=== PATIENT | female | born 1985 | race Caucasian/White ===

== ENCOUNTER → 2017-08-20 | Outpatient (CLI) | payer OTHER ==
[~2017-08-20] MED LIST: BACTRIM 400-801 TAB PO; BACTRIM DS TABL1 TAB PO; IMODIUM A-D2 MG; KETO10TA2 PO; LOPERAMIDE2 MG PO; Mylicon 125MG PO; PROTONIX40 MG PO; Prednisone PO; ULTRACET PO
== END | disposition home or self-care (01) ==
LOC: NUCLEAR 08:30
DX: M07.60 Enteropathic arthropathies, unspecified site (principal)
CPT/HCPCS: 78306; A9503

== ENCOUNTER → 2017-08-29 | Emergency (ER) | payer OTHER ==
[~2017-08-29] VITALS: Ht 149.9 cm; Wt 37.2 kg
== END | disposition home or self-care (01) ==
LOC: ER 12:47
DX: K52.9 Noninfective gastroenteritis and colitis, unspecified (principal)

== ENCOUNTER → 2018-11-18 | Day surgery (SDC) | payer OTHER | END | disposition home or self-care (01) | LOC: AMB-ENDOS 06:45 | DX: K51.011 Ulcerative (chronic) pancolitis with rectal bleeding (principal) ==

== ENCOUNTER 2019-06-05 05:20 | Emergency (ER) | payer OTHER ==
[~2019-06-05] VITALS: Ht 149.9 cm; Wt 42.6 kg
== END 2019-06-05 09:22 | disposition home or self-care (01) ==
LOC: ER 05:20
DX: R50.9 Fever, unspecified (principal); B96.0 Mycoplasma pneumoniae [M. pneumoniae] as the cause of diseases classified elsewhere

== ENCOUNTER 2020-01-12 06:20 | Day surgery (SDC) | payer OTHER | END 2020-01-12 11:25 | disposition home or self-care (01) | LOC: AMB-ENDOS 06:20 | DX: D13.2 Benign neoplasm of duodenum (principal) ==

== ENCOUNTER 2025-01-18 08:54 | Inpatient (IN) | payer OTHER ==
[~2025-01-18] VITALS: Ht 149.9 cm; Wt 41.7 kg
[2025-01-18] MEDS ORDERED: KETOROLAC TROMETHAMINE 30 MG VIAL IV ONE (09:30)
[2025-01-18] MEDS ORDERED: 0.9 % SODIUM CHLORIDE 1,000 ML IV ONE (09:30)
[2025-01-18] MEDS ORDERED: PANTOPRAZOLE SODIUM 40 MG/VIAL VIAL IV ONE (09:30)
[2025-01-18] MEDS ORDERED: PIPERACILLIN/TAZOBACTAM SODIUM 3.375 GM VIAL IV ONE ×2 (09:30→09:50)
[2025-01-18] MEDS ORDERED: KETOROLAC TROMETHAMINE 30 MG VIAL ONE (09:46)
[2025-01-18] MEDS ORDERED: LIDOCAINE HCL VISCOUS 20MG/ML BLIST 15ML MM ONE (09:51)
[2025-01-18 10:24] LABS: BASO % 0.4 % (0.1-1.2); EOS % 5.5 % (0.7-7.0); HEMATOCRIT 38.8 % (34.1-44.9); HEMOGLOBIN 12.8 g/dL (11.2-15.7); LYMPH # 2.62 (1.18-3.74); LYMPH % 28.8 % (19.3-53.1); MEAN CORPUSCULAR HEMOGLOBIN 30.2 pg (25.6-32.2); MONO # 0.81 (0.24-0.82); MONO % 8.9 % (4.7-12.5); NEUT # 5.11 (1.56-6.13); NEUT % 56.2 % (34.0-71.1); PLATELET COUNT 219 K/uL (163-369); RED BLOOD COUNT 4.24 M/uL (3.93-5.22); RED CELL DISTRIBUTION WIDTH 12.3 % (11.6-14.4)
[2025-01-18 10:27] LABS: URINE APPEARANCE Cloudy; URINE BILIRRUBIN Negative (NEGATIVE); URINE BLOOD Negative; URINE COLOR Yellow; URINE GLUCOSE Negative (NEGATIVE); URINE KETONE Negative (NEGATIVE); URINE LEUKOCYTE Large; URINE NITRATE Negative; URINE PROTEIN Negative (NEGATIVE); URINE UROBILINOGEN 0.2 E.U./dl
[2025-01-18 10:30] LABS: URINE BACTERIA 2648.6 uL (0.0-1933); URINE EPITHELIAL CELLS 102.4 uL (0.0-38.8); URINE RBC 2.9 uL (0.0-20.8); URINE WBC 254.8 uL (0.0-23.2)
[2025-01-18 10:37] LABS: URINE CAST 0.88 uL (0.0-1.40)
[2025-01-18 10:55] LABS: INR 1.02; PARTIAL THROMBOPLASTIN TIME 28.6 SECONDS (22.0-34.0); PROTHROMBIN TIME 11.1 SECONDS (9.0-11.5)
[2025-01-18 10:59] LABS: ALBUMIN 3.7 gm/dL (3.4-5.0); BILIRUBIN TOTAL 1.75 mg/dL (0.3-1.2); CALCIUM 8.9 mg/dL (8.5-10.1); CREATININE SERUM 0.71 mg/dL (0.55-1.02); GFR 92.13; GLOBULINA 3.9 G/DL (2.4-3.5); POTASSIUM 3.56 mEq/L (3.5-5.1); TOTAL PROTEIN 7.6 gm/dL (6.4-8.2)
[2025-01-18] MEDS ORDERED: RINGERS SOLUTION,LACTATED 1,000 ML IV SCH (15:15)
[2025-01-18] MEDS ORDERED: MORPHINE SULFATE 4 MG/ML VIAL IV PRN (15:15)
[2025-01-18] MEDS ORDERED: MORPHINE SULFATE 4 MG/ML CARTRIDGE IV PRN (15:30)
[2025-01-18] MEDS ORDERED: METOCLOPRAMIDE HCL 5 MG/ML VIAL IV SCH (17:00)
[2025-01-18] MEDS ORDERED: METOCLOPRAMIDE HCL 5 MG/ML VIAL ONE (17:15)
[2025-01-18 19:57] VITALS: BP 101/66; O2SAT 98
[2025-01-18 23:43] VITALS: BP 104/66; O2SAT 96
[2025-01-19 07:04] LABS: BASO % 0.6 % (0.1-1.2); EOS # 0.52 (0.04-0.54); EOS % 5.5 % (0.7-7.0); HEMATOCRIT 37.1 % (34.1-44.9); HEMOGLOBIN 12.1 g/dL (11.2-15.7); LYMPH # 2.04 (1.18-3.74); LYMPH % 21.7 % (19.3-53.1); MONO # 0.61 (0.24-0.82); MONO % 6.5 % (4.7-12.5); NEUT # 6.14 (1.56-6.13); NEUT % 65.3 % (34.0-71.1); PLATELET COUNT 207 K/uL (163-369); RED BLOOD COUNT 4.04 M/uL (3.93-5.22); RED CELL DISTRIBUTION WIDTH 12.3 % (11.6-14.4)
[2025-01-19 07:34] LABS: ALBUMIN 3.6 gm/dL (3.4-5.0); CALCIUM 8.9 mg/dL (8.5-10.1); CREATININE SERUM 0.59 mg/dL (0.55-1.02); GFR 114.07; MAGNESIUM 2.3 mg/dL (1.8-2.4); PHOSPHOROUS 3.4 mg/dL (2.5-4.9); POTASSIUM 4.09 mEq/L (3.5-5.1)
[2025-01-19 08:00] VITALS: BP 92/58; O2SAT 98
[2025-01-19] MEDS ORDERED: PANTOPRAZOLE SODIUM 40 MG/VIAL VIAL IV SCH (09:00)
[2025-01-19 16:26] VITALS: BP 100/66; O2SAT 99
[2025-01-20 03:03] VITALS: BP 97/69; O2SAT 999
[2025-01-20] MEDS ORDERED: DEXTROSE 5 % IN WATER 1,000 ML IV SCH (07:15)
[2025-01-20 08:00] VITALS: BP 107/70; O2SAT 100
[2025-01-20] MEDS ORDERED: ENOXAPARIN SODIUM 40 MG/0.4 ML SYRINGE SUBCUTANEO SCH (09:00)
[2025-01-20 15:41] VITALS: BP 103/73; O2SAT 98
[2025-01-21 01:06] VITALS: BP 119/74; O2SAT 99
[2025-01-21] MEDS ORDERED: PROTONIX40 MG PO (07:59)
[2025-01-21] MEDS ORDERED: HYOSCYAMINE0.125 M1 SL (07:59)
[2025-01-21 08:00] VITALS: BP 97/67; O2SAT 98
== END 2025-01-21 10:30 | disposition home or self-care (01) | DRG 389 ==
LOC: ER 08:54 → SURG 16:17 → SEC-K 16:17 → SURG 16:37
PROVIDERS: General Practice; ADMIT Colon & Rectal Surgery; ATTEND Colon & Rectal Surgery
DX: K56.609 Unspecified intestinal obstruction, unspecified as to partial versus complete obstruction (principal); K51.90 Ulcerative colitis, unspecified, without complications